=== PATIENT | female | born 1970 | race African-American/Black ===

== ENCOUNTER 2017-10-26 10:28 | Emergency (ER) | payer BC ==
[~2017-10-26] VITALS: Ht 172.7 cm; Wt 77.1 kg
[~2017-10-26 10:28] MED LIST: CLINDAMYCIN HC300 MG PO; IBUPROFEN PO; ULTRAM50 MG PO
[2017-10-26] MEDS ORDERED: KETOROLAC TROMETHAMINE 30 MG/ML VIAL IV STA (11:13)
[2017-10-26] MEDS ORDERED: MORPHINE SULFATE 5 MG/ML VIAL IV ONE (11:15)
[2017-10-26] MEDS ORDERED: HYOSCYAMINE SULFATE 0.5 MG/ML AMP IV ONE (11:15)
[2017-10-26 11:41] LABS: BASOPHILS % 0.8 % (0.0-1.0); EOSINOPHILS # (AUTO) 0.2 (0.0-0.4); EOSINOPHILS % 3.1 % (0.0-6.0); HEMATOCRIT 37.3 % (34.2-44.1); HEMOGLOBIN 12.4 g/dL (12.0-16.0); LYMPHOCYTES # (AUTO) 1.8 (1.0-3.2); LYMPHOCYTES % 34.6 % (18.0-39.1); MEAN CORPUSCULAR HEMOGLOBIN 25.1 pg (28-32); MEAN CORPUSCULAR HGB CONC 33.2 g/dL (31-35); MEAN CORPUSCULAR VOLUME 75.4 fL (81-99); MONOCYTES # (AUTO) 0.5 (0.2-0.8); MONOCYTES % 10.2 % (4.4-11.3); NEUTROPHILS # (AUTO) 2.7 (2.1-6.9); NEUTROPHILS % 51.1 % (38.7-80.0); PLATELET COUNT 568 x10e3/uL (140-360); RED BLOOD COUNT 4.95 x10e6/uL (3.6-5.1); RED CELL DISTRIBUTION WIDTH 14.8 % (11.7-14.4)
[2017-10-26 11:45] LABS: BILIRUBIN,URINE NEGATIVE (NEGATIVE); KETONES,URINE NEGATIVE (NEGATIVE); LEUKOCYTE ESTERASE ,URINE NEGATIVE (NEGATIVE); NITRITE,URINE NEGATIVE (NEGATIVE); PROTEIN,URINE DIPSTICK NEGATIVE (NEGATIVE); URINE UROBILINOGEN 0.2 mg/dL (0.2 - 1)
[2017-10-26 11:49] LABS: COLOR,URINE YELLOW (YELLOW); PREGNANCY TEST, URINE NEGATIVE (NEGATIVE)
[2017-10-26 12:02] LABS: ALANINE AMINOTRANSFERASE 12 IU/L (0-55); ALBUMIN/GLOBULIN RATIO 0.9 (0.8-2.0); ALKALINE PHOSPHATASE 56 IU/L (40-150); ANION GAP 11.6 mmol/L (8-16); BLOOD UREA NITROGEN 8 mg/dL (7-26); BUN/CREATININE RATIO 10 (6-25); CALCIUM 9.3 mg/dL (8.4-10.2); CARBON DIOXIDE 25 mmol/L (22-29); CHLORIDE 103 mmol/L (98-107); CREATININE, SERUM 0.84 mg/dL (0.57-1.11); EST GLOMERULAR FILTRATION RATE > 60 ML/MIN (60-); GLUCOSE 110 mg/dL (74-118); LIPASE 36 U/L (8-78); POTASSIUM 3.6 mmol/L (3.5-5.1); SODIUM 136 mmol/L (136-145)
[2017-10-26 12:46] LABS: CLARITY,URINE CLEAR (CLEAR)
[2017-10-26 12:47] LABS: EPITHELIAL CELLS,URINE RARE /LPF
--- NOTE | 2017-10-26 13:08 | Diagnostic Imaging Report ---
PROCEDURE: CT ABDOMEN AND PELVIS WITHOUT CONTRAST TECHNIQUE: The abdomen and pelvis were scanned utilizing a multidetector helical scanner from the diaphragm to the lesser trochanter without contrast per stone protocol. Coronal and sagittal multiplanar reformations were obtained. Total DLP: 726 mGy-cm COMPARISON: None. INDICATIONS: RIGHT FLANK PAIN FINDINGS: ABSENCE OF INTRAVENOUS CONTRAST DECREASES SENSITIVITY FOR DETECTION OF FOCAL LESIONS AND VASCULAR PATHOLOGY. LOWER THORAX: Normal. HEPATOBILIARY: No focal hepatic lesions. No biliary ductal dilatation. Cholecystectomy clips. SPLEEN: No splenomegaly. PANCREAS: No focal masses or ductal dilatation. ADRENALS: No adrenal nodules. KIDNEYS/URETERS: No hydronephrosis, stones, or solid mass lesions. PELVIC ORGANS/BLADDER: Uterus is retroverted and bulky in appearance especially in the cervical region. PERITONEUM / RETROPERITONEUM: No free air or fluid. LYMPH NODES: No lymphadenopathy. VESSELS: Unremarkable. GI TRACT: No distention or wall thickening. Colonic diverticula without evidence of diverticulitis. Appendix is normal. Submucosal fat infiltration of the terminal ileum, likely quiescent Crohn's. BONES AND SOFT TISSUES: Unremarkable. IMPRESSION: 1. Bulky appearing uterus especially in the cervical region. Recommend pelvic ultrasound. 2. Otherwise, no acute abnormalities identified. No renal stones. Dictated by: Garrison Gardner M.D. on 10/26/2017 at 13:16 Electronically approved by: Garrison Gardner M.D. on 10/26/2017 at 13:16
[2017-10-26 14:53] VITALS: BP 142/84
== END 2017-10-26 15:59 | disposition home or self-care (01) ==
LOC: ER 10:28
DX: R10.11 Right upper quadrant pain (principal); M54.41 Lumbago with sciatica, right side; I10 Essential (primary) hypertension
CPT/HCPCS: 36415; 74176; 80053; 81001; 81025; 83690; 85025; 87086; 99284; J1885; J1980; J2270

== ENCOUNTER → 2017-12-12 | Outpatient (CLI) | payer BC ==
[~2017-12-12] MED LIST changes: +IOPAMIDOL 370 MG/ML 200 ML INFUS..BTL INJ ONE; +SODIUM CHLORIDE 0.9% 50ML 50 ML ONE
[2017-12-12 10:54] LABS: BLOOD UREA NITROGEN 8 mg/dL (7-26); BUN/CREATININE RATIO 10 (6-25); CREATININE, SERUM 0.81 mg/dL (0.57-1.11); EST GLOMERULAR FILTRATION RATE > 60 ML/MIN (60-)
--- NOTE | 2017-12-12 15:58 | Diagnostic Imaging Report ---
EXAMINATION: CT of the neck with contrast HISTORY: Neck mass/lump under the chin screening COMPARISON: Neck CT on 04/23/2017 TECHNIQUE: Multidetector helical axial images were obtained from the sternal notch through the skull base during intravenous infusion of iodinated contrast material. Images were reconstructed using soft tissue and bone algorithms and were viewed in multiplanar format. Intravenous contrast: 100 mL of Isovue 370. FINDINGS: The technologist placed a marker on the skin in the area indicated by the patient midline submandibular region. Mass: No solid or cystic mass, particularly no abnormalities underneath the placed skin marker in the submandibular region. Nodes: No lymphadenopathy. Sinuses: Imaged portions unremarkable. Oral cavity: Unremarkable. Salivary glands: Parotid and submandibular glands unremarkable. Pharynx: Minimal prominence of the nasopharyngeal adenoid tissue, likely reactive, no discrete mass is seen. 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 Unchanged from prior. Larynx: Unremarkable. Thyroid gland: Diffusely enlarged with multiple mostly hypoattenuating nodules throughout both lobes and isthmus, previously seen dominant hypodense nodule in the right lobe of the thyroid gland is no longer visualized. The findings are likely related to multinodular goiter without significant narrowing of the trachea. Upper esophagus: Unremarkable. Blood vessels: Unremarkable. Bones: Unremarkable. IMPRESSION: 1. No mass or cervical lymphadenopathy, particularly no abnormalities underneath the placed skin marker in the submandibular region. 2. Persistent multinodular goiter as detailed above. Signed by: Dr. Kierra Maza M.D. on 12/12/2017 3:55 PM
== END ==
LOC: MAMMO 09:29
PROVIDERS: ATTEND Internal Medicine
DX: Z12.31 Encounter for screening mammogram for malignant neoplasm of breast (principal); R22.1 Localized swelling, mass and lump, neck; E04.2 Nontoxic multinodular goiter
CPT/HCPCS: 36415; 70491; 82565; 84520; Q9967

== ENCOUNTER 2018-04-07 07:18 | Observation (INO) | payer BC ==
[2018-04-04 12:29] LABS: BASOPHILS % 0.6 % (0.0-1.0); EOSINOPHILS # (AUTO) 0.2 (0.0-0.4); EOSINOPHILS % 3.7 % (0.0-6.0); HEMATOCRIT 35.1 % (34.2-44.1); HEMOGLOBIN 11.8 g/dL (12.0-16.0); LYMPHOCYTES # (AUTO) 2.6 (1.0-3.2); LYMPHOCYTES % 41.6 % (18.0-39.1); MEAN CORPUSCULAR HEMOGLOBIN 25.5 pg (28-32); MEAN CORPUSCULAR HGB CONC 33.6 g/dL (31-35); MONOCYTES # (AUTO) 0.5 (0.2-0.8); MONOCYTES % 8.7 % (4.4-11.3); NEUTROPHILS # (AUTO) 2.8 (2.1-6.9); NEUTROPHILS % 45.1 % (38.7-80.0); PLATELET COUNT 516 x10e3/uL (140-360); RED BLOOD COUNT 4.62 x10e6/uL (3.6-5.1); RED CELL DISTRIBUTION WIDTH 15.2 % (11.7-14.4)
[2018-04-04 12:48] LABS: ALANINE AMINOTRANSFERASE 12 IU/L (0-55); ALBUMIN 3.9 g/dL (3.5-5.0); ALBUMIN/GLOBULIN RATIO 1.2 (0.8-2.0); ALKALINE PHOSPHATASE 53 IU/L (40-150); ANION GAP 9.8 mmol/L (8-16); BLOOD UREA NITROGEN 6 mg/dL (7-26); BUN/CREATININE RATIO 7 (6-25); CALCIUM 9.7 mg/dL (8.4-10.2); CARBON DIOXIDE 27 mmol/L (22-29); CHLORIDE 104 mmol/L (98-107); CREATININE, SERUM 0.82 mg/dL (0.57-1.11); EST GLOMERULAR FILTRATION RATE > 60 ML/MIN (60-); GLUCOSE 106 mg/dL (74-118); POTASSIUM 3.8 mmol/L (3.5-5.1); SODIUM 137 mmol/L (136-145)
--- NOTE | 2018-04-04 13:25 | Diagnostic Imaging Report ---
PROCEDURE: Frontal and lateral views of the chest. COMPARISON: None. INDICATIONS: PRE-OP, DENIES CHEST COMPLAINTS FINDINGS: Lines/tubes: None. Lungs: The lungs are well inflated and clear. There is no evidence of pneumonia or pulmonary edema. Pleura: There is no pleural effusion or pneumothorax. Heart and mediastinum: The heart and the mediastinum are normal. Bones: No acute bony abnormality. IMPRESSION: 1. No acute cardiopulmonary disease. Cedric Dudley M.D. Dictated by: Cedric Dudley M.D. on 04/04/2018 at 13:28 Electronically approved by: Cedric Dudley M.D. on 04/04/2018 at 13:28
[~2018-04-07] VITALS: Ht 172.7 cm; Wt 90.7 kg
[~2018-04-07 07:18] MED LIST changes: +ASPIR 8181 MG PO; -IOPAMIDOL 370 MG/ML 200 ML INFUS..BTL INJ ONE; +LISINOPRIL10 MG PO; +METFORMIN HCL500 MG PO; -SODIUM CHLORIDE 0.9% 50ML 50 ML ONE
[2018-04-07] MEDS ORDERED: BUPIVACAINE 0.5%/EPI 30 ML SDV INJ ONE (10:20)
[2018-04-07] MEDS ORDERED: ESTROGENS CONJUGATED VAGINAL CR 45 GM TUBE PV ONE (10:20)
[2018-04-07] MEDS ORDERED: SODIUM CHLORIDE 0.9% INJ 10 ML VIAL ONE (10:23)
[2018-04-07] MEDS ORDERED: CEFAZOLIN SOD 2 GM/D5W 50ML 50 ML IV ONE (10:33)
[2018-04-07] MEDS ORDERED: VASOPRESSIN INJ 20 UNIT/ML VIAL IV SCH (10:45)
[2018-04-07] MEDS ORDERED: SEVOFLURANE INHAL SOLN 250 ML PEN BTL ONE (12:54)
[2018-04-07] MEDS ORDERED: ROCURONIUM BROMIDE 10 MG/ML 5ML VIAL ONE (12:54)
[2018-04-07] MEDS ORDERED: ONDANSETRON HCL INJ 2 MG/ML VIAL ONE (12:54)
[2018-04-07] MEDS ORDERED: DEXAMETHASONE SOD PHOS INJ 4 MG/ML VIAL ONE (12:54)
[2018-04-07] MEDS ORDERED: PROPOFOL IV EMULSION 10 MG/ML 20 ML VIAL ONE (12:54)
[2018-04-07] MEDS ORDERED: FENTANYL CITRATE/PF 100MCG/2 ML INJ ONE (13:08)
[2018-04-07] MEDS ORDERED: MIDAZOLAM HCL 2 MG/2 ML VIAL ONE (13:08)
[2018-04-07] MEDS ORDERED: KETAMINE HCL INJ 50 MG/ML 10 ML VIAL ONE (13:08)
[2018-04-07] MEDS ORDERED: HYDROMORPHONE 1MG/1ML INJ ONE ×2 (14:22→15:58)
[2018-04-07] MEDS ORDERED: DOCUSATE SODIUM 100 MG CAP PO PRN (15:45)
[2018-04-07] MEDS ORDERED: MORPHINE SULFATE 2 MG/ML SYR IM PRN ×2 (15:45→19:45)
[2018-04-07] MEDS ORDERED: SIMETHICONE 80 MG CHEW PO PRN (15:45)
[2018-04-07] MEDS ORDERED: ONDANSETRON HCL INJ 2 MG/ML VIAL IV PRN (15:45)
[2018-04-07] MEDS ORDERED: ACETAMINOPHEN 325 MG TAB PO PRN (15:45)
[2018-04-07] MEDS ORDERED: DIPHENHYDRAMINE HCL 25 MG CAP PO PRN (15:45)
[2018-04-07] MEDS ORDERED: BISACODYL 10 MG SUPP PR PRN (15:45)
[2018-04-07] MEDS: KETOROLAC TROMETHAMINE 30 MG/ML VIAL IV PRN ×2 (16:35→17:50)
[2018-04-07 17:28] VITALS: BP 169/72
[2018-04-07] MEDS: LACTATED RINGER'S 1,000 ML IV SCH (17:37)
[2018-04-07 17:41] VITALS: BP 169/72
[2018-04-07 17:50] VITALS: BP 169/72
[2018-04-07] MEDS: CEFAZOLIN SOD 1 GM VIAL IV SCH (18:10)
[2018-04-07 18:24] LABS: BASOPHILS % 0.1 % (0.0-1.0); EOSINOPHILS % 0.1 % (0.0-6.0); HEMATOCRIT 33.8 % (34.2-44.1); HEMOGLOBIN 11.3 g/dL (12.0-16.0); LYMPHOCYTES # (AUTO) 1.1 (1.0-3.2); LYMPHOCYTES % 7.6 % (18.0-39.1); MEAN CORPUSCULAR HEMOGLOBIN 25.5 pg (28-32); MEAN CORPUSCULAR HGB CONC 33.4 g/dL (31-35); MEAN CORPUSCULAR VOLUME 76.3 fL (81-99); MONOCYTES # (AUTO) 0.2 (0.2-0.8); MONOCYTES % 1.7 % (4.4-11.3); NEUTROPHILS # (AUTO) 12.4 (2.1-6.9); NEUTROPHILS % 90.2 % (38.7-80.0); PLATELET COUNT 483 x10e3/uL (140-360); RED BLOOD COUNT 4.43 x10e6/uL (3.6-5.1); RED CELL DISTRIBUTION WIDTH 15.2 % (11.7-14.4)
[2018-04-07] MEDS ORDERED: MORPHINE SULFATE 2 MG/ML SYR IV STA (19:14)
[2018-04-07 20:07] VITALS: BP 154/79
[2018-04-07 20:18] VITALS: BP 154/79
[2018-04-07] MEDS ORDERED: TRAMADOL HCL 50 MG TAB PO PRN (21:15)
[2018-04-07] MEDS ORDERED: CEFAZOLIN SOD 1 GM/NS 50ML 50 ML IV SCH (22:00)
[2018-04-08] VITALS: BP 122/71
[2018-04-08] MEDS: KETOROLAC TROMETHAMINE 30 MG/ML VIAL IV PRN ×2 (00:41→08:43)
[2018-04-08] MEDS: LACTATED RINGER'S 1,000 ML IV SCH ×3 (01:45→11:16)
[2018-04-08] MEDS: CEFAZOLIN SOD 1 GM VIAL IV SCH ×2 (01:46→09:28)
[2018-04-08 04:00] VITALS: BP 128/64
[2018-04-08 05:49] LABS: BASOPHILS % 0.2 % (0.0-1.0); EOSINOPHILS % 0.2 % (0.0-6.0); HEMATOCRIT 27.3 % (34.2-44.1); HEMOGLOBIN 9.4 g/dL (12.0-16.0); LYMPHOCYTES # (AUTO) 1.8 (1.0-3.2); LYMPHOCYTES % 14.1 % (18.0-39.1); MEAN CORPUSCULAR HEMOGLOBIN 25.8 pg (28-32); MEAN CORPUSCULAR HGB CONC 34.4 g/dL (31-35); MEAN CORPUSCULAR VOLUME 74.8 fL (81-99); MONOCYTES # (AUTO) 0.9 (0.2-0.8); MONOCYTES % 7.5 % (4.4-11.3); NEUTROPHILS # (AUTO) 9.8 (2.1-6.9); NEUTROPHILS % 77.5 % (38.7-80.0); PLATELET COUNT 436 x10e3/uL (140-360); RED BLOOD COUNT 3.65 x10e6/uL (3.6-5.1); RED CELL DISTRIBUTION WIDTH 15.1 % (11.7-14.4)
[2018-04-08 06:05] LABS: ANION GAP 10.4 mmol/L (8-16); BLOOD UREA NITROGEN 8 mg/dL (7-26); BUN/CREATININE RATIO 11 (6-25); CALCIUM 8.3 mg/dL (8.4-10.2); CARBON DIOXIDE 26 mmol/L (22-29); CHLORIDE 105 mmol/L (98-107); CREATININE, SERUM 0.73 mg/dL (0.57-1.11); EST GLOMERULAR FILTRATION RATE > 60 ML/MIN (60-); GLUCOSE 106 mg/dL (74-118); POTASSIUM 4.4 mmol/L (3.5-5.1); SODIUM 137 mmol/L (136-145)
[2018-04-08 07:45] VITALS: BP 114/56
[2018-04-08] MEDS ORDERED: LISINOPRIL 10 MG TAB PO SCH (09:00)
[2018-04-08] MEDS ORDERED: METFORMIN HCL 500 MG TAB PO SCH (09:00)
[2018-04-08 09:29] VITALS: BP 114/56
--- NOTE | 2018-04-08 09:43 | Operative Report ---
DATE OF PROCEDURE: April 07, 2018 PREOPERATIVE DIAGNOSES 1. Menorrhagia. 2. Anemia. 3. Fibroid uterus. 4. Pelvic pain. POSTOPERATIVE DIAGNOSES 1. Menorrhagia. 2. Anemia. 3. Fibroid uterus. 4. Pelvic pain. PROCEDURES: 1. Laparoscopically-assisted vaginal hysterectomy. 2. Bilateral salpingectomy. ANESTHESIA: General with Dr. Dawson. INDICATIONS FOR PROCEDURES: The patient is a 47-year-old 3, para 3, status post tubal ligation with last menstrual period March 22, 2018 with fibroid uterus, a 2.3 cm left fundal myoma and who has menorrhagia and anemia. She has failed medical therapy with non-steroidals and oral contraceptives, and she is here for laparoscopically-assisted vaginal hysterectomy, bilateral salpingectomy. She does not desire bilateral oophorectomy unless medically necessary. She has declined endometrial ablation, and is, therefore, taken here for laparoscopically-assisted vaginal hysterectomy at this time. FINDINGS AT SURGERY: There was an 8-week sized retroverted, retroflexed uterus. The tubes were status post tubal ligation. The ovaries were within normal limits. The tubes were easily divided from the ovaries and the uterus and tubes were removed and sent to pathology. DESCRIPTION OF PROCEDURES: The patient was taken to the operating room and placed on the table in the supine position. General anesthesia was administered. A Mckeon catheter was placed in the bladder for constant drainage. The perineum was prepared and draped in the usual sterile manner as was the abdomen. Pelvic exam revealed an 8-week size nodular, retroverted, retroflexed uterus with no adnexal masses. A weighted speculum was placed in the posterior vaginal wall and then with the aid of a right angle retractor the anterior lip of the cervix was grasped with a single tooth tenaculum. The Serafin cannula was then inserted into the endocervical canal for manipulation. We proceeded with laparoscopy. The laborer operator changed gloves. A small incision was made just inferior to the umbilicus in the midline. The Veress needle was inserted through into the peritoneal cavity. A pneumoperitoneum was created by insufflation of 4 liters of carbon dioxide gas under a filling pressure of 8-10 mm of mercury. The Veress needle was removed and the trocar was inserted through the incision into the peritoneal cavity. The trocar was removed, and laparoscope was placed and with confirmation that the peritoneal cavity had been entered, a second trocar was placed through a midline suprapubic incision under direct visualization by laparoscopy, and 3rd and 4th 5 mm trocars were placed in the right and left lower quadrant for manipulation. FINDINGS AT SURGERY: There was an 8-week sized nodular, retroverted, retroflexed uterus. Tubes were status post tubal ligation. The ovaries were within normal limits. The fibroid could not be seen very distinctively from the uterus as it was not pedunculated. It was subserosal. The uterus could not easily be taken out of the retroflexed position. Therefore, a laparoscopic tenaculum was used to grasp the fundus of the uterus and brought it up so that the uterine attachments were easily identified and the surgery was made much easier. At this point, the left tube was grasped and the LigaSure instrument was placed between the left tube and the left ovary on the LigaSure. The LigaSure was fired and after good hemostasis was noted it was cut. The tube was freed up, and then 2 more bites were taken with the LigaSure down the mesosalpinx completely the ovary from the uterus, coagulating and cutting. At this point, the round ligament on the left was then clamped with the LigaSure instrument. The round ligament was then coagulated and cut, and then the anterior peritoneum was opened up to the point where there were adhesions of bladder to the lower uterine segment. At this point, the uterus was almost completely free on this side. We took one bite on the broad ligament, clamping with the LigaSure, coagulating and then cutting. Good hemostasis in evidence. We then proceeded to the right side where the right tube was grasped and mesosalpinx was grabbed with the LigaSure instrument and the mesosalpinx was coagulated and cut, freeing the tube from the ovary. Two further bites in the mesosalpinx were taken, and then the round ligament on the right side was coagulated and cut, and then the anterior peritoneum was opened from the round ligament to the point where the bladder was adherent to the anterior surface of the uterus. At this point, inspected, and the right side of the uterus was free as well, and the decision was made to proceed with vaginal portion of the procedure. Due to the deep retroflexion of the uterus, there was very little of the uterus still attached to the pelvic side eckert, but the uterine vessels were still attached. So, we placed the patient back in the lithotomy position, and dilute Pitressin was injected around the cervix. The cervix was grasped with two single-tooth tenacula and the Serafin cannula was removed, and then the dilute Pitressin was injected around the cervix and then the cervix was circumscribed with a knife and the endopelvic fascia was advanced anteriorly, posteriorly and laterally. Anteriorly, the bladder was severely adherent to the uterus, and sharp dissection was able to move it out of the way partially, and then at this point the posterior cul-de-sac was visualized. It was grasped and opened under direct visualization using the Metzenbaum scissors and it was opened from uterosacral ligament to uterosacral ligament, and then the vaginal cuff was tied to the posterior peritoneum for hemostasis using running lock stitch of 2-0 chromic suture. Then, the Zeppelin clamps were taken on the uterosacral ligaments, clamping, cutting and tieing off with 0 Vicryl suture and tagging for future identification, and then the cardinal ligament on each side was clamped, cut and tied off with 0 Vicryl suture. We then attempted to advance the peritoneum anteriorly, but were not successful in doing so due to the adherent bladder, and we, therefore, were able to get it far enough to identify the uterine vessels, clamping, cutting and tieing off with 0 Vicryl suture. There was good hemostasis in evidence. However, there was some back bleeding noted after tieing off one side before the other side was tied off. This required placing a clamp over it to prevent the bleeding until the other side was secure. We took another bite up on the broad ligament, clamping, cutting and tieing off with 0 Vicryl suture. At this point, because the bladder was still adherent to the lower uterine segment, the decision was made to remove the uterus posteriorly using Towel clips. The uterus was brought out until only the anterior attachments were noted, and then Zeppelin clamps were placed over the anterior peritoneum as close to the uterus as possible, and then the bladder was successfully dissected away and the tissue was tied off with 0 Vicryl suture. There was good hemostasis in evidence and at this point the uterus was completely detached, and sent to pathology for definitive diagnosis. There was good hemostasis in evidence. The Mckeon catheter was draining clear urine, and we, therefore, proceeded to close. The uterosacral ligaments were tied to the vaginal cuff using a free needle for support. Following this, the vaginal cuff was closed with a running lock stitch of 1-0 chromic suture. There was good hemostasis in evidence, and then we irrigated and suctioned the vagina and found no other evidence of any bleeding, and then the laborer operator changed gown and gloves and we proceeded to look abdominally and after reinserting the pneumoperitoneum we were able to visualize all of the pedicles. There was no evidence of bleeding of any kind. Both ovaries were seen and appeared to be completely normal. We irrigated and suctioned twice. No evidence of any bleeding at this time. Therefore, the decision was made to close. All the air and the instruments were removed from the abdomen. The skin incisions were then closed with inverted stitches of 4-0 Monocryl suture thus completing the procedure. There were no complications noted. Estimated blood loss was 500 mL. The patient tolerated the procedure well, and was transferred from the operating room to the recovery room in stable condition. Again, the Mckeon catheter was draining clear urine. The patient received Ancef 2 grams for prophylaxis and the counts were correct x3. Job#: [id number]
[2018-04-08 11:47] VITALS: BP 108/56
[2018-04-08] MEDS ORDERED: IBUPROFEN 400 MG TAB PO PRN (12:15)
[2018-04-08] MEDS ORDERED: MOTRIN200 MG PO (14:24)
== END 2018-04-08 15:02 | disposition home or self-care (01) ==
LOC: OR 07:18 → PACU V 15:58 → MED/SURG 17:27
PROVIDERS: ADMIT Obstetrics & Gynecology; ATTEND Obstetrics & Gynecology
DX: D25.2 Subserosal leiomyoma of uterus (principal); N92.0 Excessive and frequent menstruation with regular cycle; D64.9 Anemia, unspecified; E11.9 Type 2 diabetes mellitus without complications; I10 Essential (primary) hypertension; N72 Inflammatory disease of cervix uteri; N87.0 Mild cervical dysplasia
CPT/HCPCS: 36415 ×3; 58552; 71046; 80048; 80053; 81025; 82948 ×2; 83036; 84702; 85025 ×3; 86850; 86900; 88307; 93005; G0378 ×2; J0690 ×2; J1100; J1170; J1885 ×2; J2250; J2270; J2405; J7120 ×2

== ENCOUNTER 2018-12-15 21:16 | Emergency (ER) | payer BC ==
[~2018-12-15] VITALS: Ht 172.7 cm; Wt 90.7 kg
[~2018-12-15 21:16] MED LIST changes: +MOTRIN200 MG PO
[2018-12-15] MEDS ORDERED: ACETAMINOPHEN 325 MG TAB PO ONE (21:30)
[2018-12-15] MEDS ORDERED: ACETAMINOPHEN 325 MG TAB ONE (21:33)
[2018-12-15 21:53] LABS: STREPTOCOCCUS GRP A ANTIGEN NEGATIVE (NEGATIVE)
[2018-12-15 22:11] LABS: INFLUENZAE A&B ANTIGEN (RAPID) POSITIVE FLU A (NEGATIVE)
--- NOTE | 2018-12-15 22:41 | Diagnostic Imaging Report ---
EXAMINATION: CHEST 2 VIEWS INDICATION: ^FEVER, COUGH, CONGESTION, BODY ACHES ^[id number] ^[id number] COMPARISON: None FINDINGS: PA and lateral views TUBES and LINES: None. LUNGS: Lungs are well inflated. There is no evidence of pneumonia or pulmonary edema. PLEURA: No pleural effusion or pneumothorax. HEART AND MEDIASTINUM: The cardiomediastinal silhouette is unremarkable. BONES AND SOFT TISSUES: No acute osseous lesion. Soft tissues are unremarkable. UPPER ABDOMEN: No free air under the diaphragm. IMPRESSION: No acute thoracic abnormality. Signed by: Dr. Reymundo Sheets MD on 12/15/2018 10:15 PM
== END 2018-12-15 22:34 | disposition home or self-care (01) ==
LOC: ER 21:16
DX: R50.9 Fever, unspecified (principal); R05 Cough; J11.1 Influenza due to unidentified influenza virus with other respiratory manifestations; I10 Essential (primary) hypertension; E11.9 Type 2 diabetes mellitus without complications; E78.00 Pure hypercholesterolemia, unspecified
CPT/HCPCS: 71046; 83518; 87070; 87400; 99283

== ENCOUNTER → 2019-01-23 | Outpatient (CLI) | payer BC | LOC: MAMMO 08:02 | PROVIDERS: ATTEND Internal Medicine | DX: Z12.31 Encounter for screening mammogram for malignant neoplasm of breast (principal) | CPT/HCPCS: 77067 ==

== ENCOUNTER → 2019-07-27 | Outpatient (CLI) | payer BC ==
[~2019-07-27] MED LIST changes: +IOPAMIDOL 370 MG/ML 200 ML INFUS..BTL INJ ONE; +SODIUM CHLORIDE 0.9% 50ML 50 ML ONE
[2019-07-27 17:25] LABS: BLOOD UREA NITROGEN 7 mg/dL (7-26); BUN/CREATININE RATIO 9 (6-25); CREATININE, SERUM 0.79 mg/dL (0.57-1.11); EST GLOMERULAR FILTRATION RATE > 60 ML/MIN (60-)
--- NOTE | 2019-07-27 18:59 | Diagnostic Imaging Report ---
History: Swelling of the neck, coughing at night Comparison studies: CT neck 12/12/2017 Technique: Axial, coronal and sagittal images from the skull base to the thoracic inlet. Coronal and sagittal images reconstructed from the axial data. Intravenous contrast: 100 cc of Omnipaque 300. Dose modulation, iterative reconstruction, and/or weight based adjustment of the mA/kV was utilized to reduce the radiation dose to as low as reasonably achievable. Findings: Soft tissues: No abnormalities. Masses: None. Lymph nodes: No radiographically significant adenopathy. Vessels: Arteries and veins are patent. Glands (thyroid, parotid and submandibular): Bilateral hypodense thyroid nodules and diffusely enlarged thyroid gland, the largest nodule is located at the left thyroid inferior pole, measuring up to 3.0 cm. Remaining glands are normal in size and symmetric. No masses. Orbits: No abnormalities. Paranasal sinuses: Clear. Temporal bones: No abnormalities. Skull base and facial bones: Intact. Cervical spine: No high-grade canal stenosis or foraminal narrowing IMPRESSION: 1. Multiple thyroid nodules measuring up to 3.0 cm and diffusely enlarged thyroid gland, stable compared to previous ultrasound neck, if indicated ultrasound recommended for further evaluation. No other neck abnormality Signed by: DR Rubén Rodriguez M.D. on 07/27/2019 6:56 PM
== END ==
LOC: CT 16:33
PROVIDERS: ATTEND Internal Medicine
DX: R22.1 Localized swelling, mass and lump, neck (principal); E04.9 Nontoxic goiter, unspecified
CPT/HCPCS: 36415; 70491; 82565; 84520; 84702; Q9967

== ENCOUNTER 2019-11-28 18:22 | Emergency (ER) | payer BC ==
[~2019-11-28] VITALS: Ht 172.7 cm; Wt 90.7 kg
[~2019-11-28 18:22] MED LIST changes: -IOPAMIDOL 370 MG/ML 200 ML INFUS..BTL INJ ONE; -SODIUM CHLORIDE 0.9% 50ML 50 ML ONE
[2019-11-28 18:28] VITALS: BP 176/97
== END 2019-11-28 18:33 | disposition home or self-care (01) ==
LOC: ER 18:22
DX: J02.0 Streptococcal pharyngitis (principal); R05 Cough; I10 Essential (primary) hypertension; E11.9 Type 2 diabetes mellitus without complications
CPT/HCPCS: 99282

== ENCOUNTER → 2020-02-20 | Outpatient (CLI) | payer BC | LOC: MAMMO 09:37 | PROVIDERS: ATTEND Internal Medicine | DX: Z12.31 Encounter for screening mammogram for malignant neoplasm of breast (principal) | CPT/HCPCS: 77067 ==

== ENCOUNTER → 2020-07-18 | Day surgery (SDC) | payer BC, OTHER ==
[~2020-07-18] MED LIST changes: +ASPIRIN81 MG PO; +ATORVASTATIN CA10 MG PO; +FENTANYL CITRATE/PF 100MCG/2 ML INJ ONE; +LIDOCAINE HCL 2% LOCAL INJ 5 ML SDV VIAL INJ ONE; +MIDAZOLAM HCL 2 MG/2 ML VIAL ONE; +PROPOFOL IV EMULSION 10 MG/ML 20 ML VIAL ONE
[2020-07-18 10:25] VITALS: BP 135/84
--- NOTE | 2020-07-18 11:19 | Operative Report ---
DATE OF PROCEDURE: 07/18/2020 SURGEON: Dick Mahoney MD EGD with esophageal dilatation and biopsies and colonoscopy with polypectomy. INDICATIONS FOR EGD: Dysphagia. INDICATIONS FOR COLONOSCOPY: Colorectal cancer screening. MEDICATIONS: The patient was done under MAC. Please see anesthesiologist's note. PROCEDURE IN DETAIL: With the patient in left lateral decubitus position, a flexible fiberoptic Olympus gastroscope was introduced with ease into the esophagus under direct visualization without any difficulty. There was some patchy erythema noted in distal esophagus. The esophagus was dilated to size 52-Romanian Reis. The scope was then advanced with ease into the stomach. Mucosa overlying the antrum and the body revealed some diffuse erythema and low-grade edema. Biopsies were obtained, sent to stain for H pylori. Pylorus was of normal contour and shape was intubated with ease and the scope was advanced all the way to the second portion of the duodenum. The scope was then withdrawn slowly mucosa overlying the proximal second portion and the duodenal bulb appeared to be within normal limits. The scope was then withdrawn back into the stomach and retroflexed and mucosa overlying the fundus and the cardia appeared to be within normal limits. The scope was then straightened out, it was subsequently withdrawn, and the patient tolerated procedure well. IMPRESSION: 1. Distal esophagitis, mild. 2. Esophagus dilated to size 52-Romanian Reis. 3. Gastritis, biopsied. Biopsies sent to stain for H pylori. PLAN: Follow up histology. Initiate Protonix 40 mg one p.o. q.a.m. a.c. The patient was then turned around after adequate lubrication of the anal canal, a flexible fiberoptic Olympus colonoscope was inserted into the rectum with ease and advanced all the way to the cecum. The prep was suboptimal with retained fecal material in the colon. The scope was then withdrawn slowly, whatever was visualized mucosa overlying the cecum appeared to be within normal limits. The mucosa overlying the ascending colon, transverse, descending, and sigmoid, likewise other than for diverticular disease was grossly within normal limits. Minute polyp was noted in the distal rectum that was removed per hot snare polypectomy. The scope was then retroflexed into the distal rectum and the area around the dentate line grossly appeared to be within limits. The scope was then straightened out, it was subsequently withdrawn. The patient tolerated procedure well. IMPRESSION: 1. Suboptimal prep. 2. Diverticulosis. 3. Rectal polyp removed per hot snare polypectomy. PLAN: Followup histology. Initiate high-fiber, low-fat diet. Initiate high-fiber supplement. The patient will need a followup colonoscopy in 1 year due to the suboptimal prep. Dick Mahoney MD [facility] [place] /[id number] cc: Dr. Oconnell
== END | disposition home or self-care (01) ==
LOC: OR 07:57
PROVIDERS: ATTEND Internal Medicine Gastroenterology
DX: K20.9 Esophagitis, unspecified (principal); K62.1 Rectal polyp; K29.50 Unspecified chronic gastritis without bleeding; B96.81 Helicobacter pylori [H. pylori] as the cause of diseases classified elsewhere; Q27.33 Arteriovenous malformation of digestive system vessel; K57.30 Diverticulosis of large intestine without perforation or abscess without bleeding; K21.9 Gastro-esophageal reflux disease without esophagitis; K59.00 Constipation, unspecified; E11.9 Type 2 diabetes mellitus without complications; I10 Essential (primary) hypertension; D64.9 Anemia, unspecified; Z01.810 Encounter for preprocedural cardiovascular examination; Z01.812 Encounter for preprocedural laboratory examination; Z11.59 Encounter for screening for other viral diseases; Z79.82 Long term (current) use of aspirin; Z79.84 Long term (current) use of oral hypoglycemic drugs; Z68.30 Body mass index [BMI] 30.0-30.9, adult
CPT/HCPCS: 36415; 43239; 43450; 45385; 82948; 93005; J2001; J2250; J2704; J3010; U0002; 45378

== ENCOUNTER → 2020-10-30 | Outpatient (CLI) | payer OTHER ==
[~2020-10-30] MED LIST changes: +COVID-19 VACC, MRNA(MODERNA)/PF 100 MCG/0.5 ML VIAL IM ONE; -FENTANYL CITRATE/PF 100MCG/2 ML INJ ONE; -LIDOCAINE HCL 2% LOCAL INJ 5 ML SDV VIAL INJ ONE; -MIDAZOLAM HCL 2 MG/2 ML VIAL ONE; -PROPOFOL IV EMULSION 10 MG/ML 20 ML VIAL ONE
== END ==
LOC: VACCPMC 18:08
DX: Z23 Encounter for immunization (principal); Z20.822 Contact with and (suspected) exposure to COVID-19

== ENCOUNTER → 2020-11-28 | Outpatient (CLI) | payer OTHER | END | DRG 951 | LOC: VACCPMC 09:08 | DX: Z23 Encounter for immunization (principal); Z20.822 Contact with and (suspected) exposure to COVID-19 | CPT/HCPCS: 0012A; 91301 ==

== ENCOUNTER → 2021-02-16 | Outpatient (CLI) | payer OTHER ==
[~2021-02-16] MED LIST changes: -COVID-19 VACC, MRNA(MODERNA)/PF 100 MCG/0.5 ML VIAL IM ONE
== END ==
LOC: MAMMO 13:40
PROVIDERS: ATTEND Obstetrics & Gynecology
DX: Z12.31 Encounter for screening mammogram for malignant neoplasm of breast (principal)
CPT/HCPCS: 77067

== ENCOUNTER → 2021-05-29 | Day surgery (SDC) | payer OTHER ==
[~2021-05-29] MED LIST changes: +AMOXICILLIN500 MG PO; +CLARITHROMYCIN250 MG PO; +LANSOPRAZOLE30 MG PO; +LIDOCAINE HCL 2% LOCAL INJ 5 ML SDV VIAL INJ ONE; +METOCLOPRAMIDE HCL 10 MG/2ML VIAL ONE; +PROPOFOL IV EMULSION 10 MG/ML 20 ML VIAL ONE; +PROTONIX20 MG PO; +SIMETHICONE 40 MG/0.6 ML BTL ONE
[2021-05-29 09:00] VITALS: BP 105/64
== END | disposition home or self-care (01) ==
LOC: ENDO 06:06
PROVIDERS: ATTEND Internal Medicine Gastroenterology
DX: K29.50 Unspecified chronic gastritis without bleeding (principal); B96.81 Helicobacter pylori [H. pylori] as the cause of diseases classified elsewhere; K20.90 Esophagitis, unspecified without bleeding; I10 Essential (primary) hypertension; R13.10 Dysphagia, unspecified; E78.00 Pure hypercholesterolemia, unspecified; E11.9 Type 2 diabetes mellitus without complications; Z80.0 Family history of malignant neoplasm of digestive organs; K29.70 Gastritis, unspecified, without bleeding; Z68.31 Body mass index [BMI] 31.0-31.9, adult; F41.9 Anxiety disorder, unspecified; K31.89 Other diseases of stomach and duodenum; Z79.82 Long term (current) use of aspirin; Z79.84 Long term (current) use of oral hypoglycemic drugs; Z01.810 Encounter for preprocedural cardiovascular examination; Z01.812 Encounter for preprocedural laboratory examination; Z20.822 Contact with and (suspected) exposure to COVID-19
CPT/HCPCS: 36415; 43239; 43450; 82948; 93005; C9113; J2001; J2704; J2765; U0002

== ENCOUNTER → 2021-06-18 | Outpatient (CLI) | payer OTHER ==
[~2021-06-18] MED LIST changes: -LIDOCAINE HCL 2% LOCAL INJ 5 ML SDV VIAL INJ ONE; -METOCLOPRAMIDE HCL 10 MG/2ML VIAL ONE; -PROPOFOL IV EMULSION 10 MG/ML 20 ML VIAL ONE; -SIMETHICONE 40 MG/0.6 ML BTL ONE
== END ==
LOC: US 10:38
PROVIDERS: ATTEND Surgery
DX: E04.9 Nontoxic goiter, unspecified (principal)
CPT/HCPCS: 76536

== ENCOUNTER → 2021-08-25 | Outpatient (CLI) | payer OTHER ==
[~2021-08-25] MED LIST changes: +COVID-19 VACC, MRNA(MODERNA)/PF 100 MCG/0.5 ML VIAL IM ONE
== END ==
LOC: VACCPMC 08:13
DX: Z23 Encounter for immunization (principal); Z20.822 Contact with and (suspected) exposure to COVID-19

== ENCOUNTER → 2022-02-05 | Outpatient (CLI) | payer BC ==
[~2022-02-05] MED LIST changes: -COVID-19 VACC, MRNA(MODERNA)/PF 100 MCG/0.5 ML VIAL IM ONE
== END ==
LOC: MAMMO 11:12
PROVIDERS: ATTEND Internal Medicine
DX: Z12.31 Encounter for screening mammogram for malignant neoplasm of breast (principal)
CPT/HCPCS: 77067

== ENCOUNTER → 2022-02-26 | Day surgery (SDC) | payer BC ==
[~2022-02-26] MED LIST changes: +FARXIGA5 MG; +LEVOTHYROXINE50 MCG PO; +LEXAPRO10 MG PO; +LIDOCAINE HCL 2% LOCAL INJ 5 ML SDV VIAL INJ ONE; +MIDAZOLAM HCL 2 MG/2 ML VIAL ONE; +PROPOFOL IV EMULSION 10 MG/ML 20 ML VIAL ONE
[2022-02-26 12:11] VITALS: BP 123/79
== END | disposition home or self-care (01) ==
LOC: ENDO 08:51
PROVIDERS: ATTEND Internal Medicine Gastroenterology
DX: K20.90 Esophagitis, unspecified without bleeding (principal); K29.70 Gastritis, unspecified, without bleeding; K22.70 Barrett's esophagus without dysplasia; K21.9 Gastro-esophageal reflux disease without esophagitis; K31.89 Other diseases of stomach and duodenum; Z71.3 Dietary counseling and surveillance; E78.5 Hyperlipidemia, unspecified; I10 Essential (primary) hypertension; E11.9 Type 2 diabetes mellitus without complications; Z71.89 Other specified counseling; Z01.810 Encounter for preprocedural cardiovascular examination; Z01.812 Encounter for preprocedural laboratory examination; Z20.822 Contact with and (suspected) exposure to COVID-19; Z79.84 Long term (current) use of oral hypoglycemic drugs; Z79.82 Long term (current) use of aspirin; Z79.899 Other long term (current) drug therapy; Z68.31 Body mass index [BMI] 31.0-31.9, adult; Z80.0 Family history of malignant neoplasm of digestive organs
CPT/HCPCS: 36415; 43239; 43450; 82948; 93005; C9113; J2001; J2250; J2704; U0002

== ENCOUNTER → 2023-01-07 | Day surgery (SDC) | payer BC ==
[~2023-01-07] MED LIST changes: +FENTANYL CITRATE/PF 100MCG/2 ML INJ ONE; +GLYCOPYRROLATE INJ 0.2 MG/ML VIAL ONE; +HYOSCYAMINE SULFATE 0.5 MG/ML INJ ONE; -MIDAZOLAM HCL 2 MG/2 ML VIAL ONE; +OZEMPIC0.25 MG/0. SC; +POVIDONE IODINE 0.05% 0.05 % ML PO ONE
[2023-01-07 10:05] VITALS: BP 115/78
== END | disposition home or self-care (01) ==
LOC: ENDO 07:10
PROVIDERS: ATTEND Internal Medicine Gastroenterology
DX: R13.10 Dysphagia, unspecified (principal); K29.70 Gastritis, unspecified, without bleeding; K21.9 Gastro-esophageal reflux disease without esophagitis; D64.9 Anemia, unspecified; I10 Essential (primary) hypertension; E11.9 Type 2 diabetes mellitus without complications; Z01.810 Encounter for preprocedural cardiovascular examination; Z79.82 Long term (current) use of aspirin; Z79.84 Long term (current) use of oral hypoglycemic drugs; Z79.85 Long-term (current) use of injectable non-insulin antidiabetic drugs; Z79.899 Other long term (current) drug therapy; Z68.30 Body mass index [BMI] 30.0-30.9, adult
CPT/HCPCS: 36415; 43239; 43450; 82948; 93005; C9113; J1980; J2001; J2704; J3010

== ENCOUNTER → 2023-02-07 | Outpatient (CLI) | payer BC ==
[~2023-02-07] MED LIST changes: -FENTANYL CITRATE/PF 100MCG/2 ML INJ ONE; -GLYCOPYRROLATE INJ 0.2 MG/ML VIAL ONE; -HYOSCYAMINE SULFATE 0.5 MG/ML INJ ONE; -LIDOCAINE HCL 2% LOCAL INJ 5 ML SDV VIAL INJ ONE; -POVIDONE IODINE 0.05% 0.05 % ML PO ONE; -PROPOFOL IV EMULSION 10 MG/ML 20 ML VIAL ONE
== END ==
LOC: MAMMO 14:34
PROVIDERS: ATTEND Internal Medicine
DX: Z12.31 Encounter for screening mammogram for malignant neoplasm of breast (principal)
CPT/HCPCS: 77067

== ENCOUNTER → 2023-11-15 | Day surgery (SDC) | payer BC ==
[2023-11-11 12:39] LABS: BASOPHILS % 0.7 % (0.0-1.0); EOSINOPHILS # (AUTO) 0.2 (0.0-0.4); EOSINOPHILS % 2.8 % (0.0-6.0); HEMATOCRIT 35.9 % (34.2-44.1); HEMOGLOBIN 11.8 g/dL (12.0-16.0); LYMPHOCYTES # (AUTO) 2.5 (1.0-3.2); LYMPHOCYTES % 42.9 % (18.0-39.1); MEAN CORPUSCULAR HEMOGLOBIN 27.1 pg (28-32); MEAN CORPUSCULAR HGB CONC 32.9 g/dL (31-35); MEAN CORPUSCULAR VOLUME 82.3 fL (81-99); MONOCYTES # (AUTO) 0.6 (0.2-0.8); MONOCYTES % 10.6 % (4.4-11.3); NEUTROPHILS # (AUTO) 2.5 (2.1-6.9); NEUTROPHILS % 42.8 % (38.7-80.0); PLATELET COUNT 450 x10e3/uL (140-360); RED BLOOD COUNT 4.36 x10e6/uL (3.6-5.1); RED CELL DISTRIBUTION WIDTH 13.4 % (11.7-14.4); WHITE BLOOD COUNT 5.76 x10e3/uL (4.8-10.8)
[2023-11-11 12:50] LABS: INR 1.09; PROTHROMBIN TIME 14.3 seconds (11.9-14.5)
[2023-11-11 12:51] LABS: PARTIAL THROMBOPLASTIN TIME 29.5 seconds (23.8-35.5)
[2023-11-11 12:55] LABS: ANION GAP 11.7 mmol/L (8-16); CALCIUM 9.3 mg/dL (8.4-10.2); CREATININE, SERUM 0.86 mg/dL (0.57-1.11); POTASSIUM 3.7 mmol/L (3.5-5.1)
[~2023-11-15] MED LIST changes: +ASPIRIN 81 MG CHEW TAB ONE; +ASPIRIN EC81 MG PO; +DEXAMETHASONE SOD PHOS INJ 4 MG/ML SDV ONE; +FAMOTIDINE20 MG PO; +FENTANYL CITRATE/PF 100MCG/2 ML INJ ONE; +KETOROLAC TROMETHAMINE 30 MG/ML VIAL ONE; +LACTATED RINGER'S 1,000 ML ONE; +LIDOCAINE HCL 2% LOCAL INJ 5 ML SDV VIAL INJ ONE; +METOCLOPRAMIDE HCL 10 MG/2ML VIAL IV ONE; +METOCLOPRAMIDE HCL 10 MG/2ML VIAL ONE; +MIDAZOLAM HCL 2 MG/2 ML VIAL ONE; +NAPROXEN250 MG PO; +ONDANSETRON HCL INJ 2MG/ML 2ML 2 MG/ML VIAL IV ONE; +ONDANSETRON HCL INJ 2MG/ML 2ML 2 MG/ML VIAL ONE; +OZEMPIC0.25 MG/02 SC; +PROPOFOL IV EMULSION 10 MG/ML 20 ML VIAL ONE; +SEVOFLURANE INHAL SOLN 250 ML PEN BTL ONE
[2023-11-15] MEDS: FENTANYL CITRATE/PF 100MCG/2 ML INJ ONE ×4 (09:19→09:37)
[2023-11-15] MEDS: HYDROMORPHONE 1MG/1ML INJ ONE ×5 (09:51→10:15)
[2023-11-15 10:50] VITALS: BP 135/72; PULSE 68; RESP 18; O2SAT 97
== END | disposition home or self-care (01) ==
LOC: OR 06:00 → MERGE 08:00
PROVIDERS: ATTEND Specialist
DX: S83.241A Other tear of medial meniscus, current injury, right knee, initial encounter (principal); M22.41 Chondromalacia patellae, right knee; E11.9 Type 2 diabetes mellitus without complications; I10 Essential (primary) hypertension; E78.5 Hyperlipidemia, unspecified; K21.9 Gastro-esophageal reflux disease without esophagitis; D57.3 Sickle-cell trait; Z01.810 Encounter for preprocedural cardiovascular examination; Z01.812 Encounter for preprocedural laboratory examination; Z79.82 Long term (current) use of aspirin; Z79.1 Long term (current) use of non-steroidal anti-inflammatories (NSAID); Z79.84 Long term (current) use of oral hypoglycemic drugs; Z79.85 Long-term (current) use of injectable non-insulin antidiabetic drugs; Z79.899 Other long term (current) drug therapy
CPT/HCPCS: 29881; 36415; 80048; 85025; 85610; 85730; 93005 ×2; J0690; J1100; J1170; J1885; J2001; J2250; J2405; J2704; J2765; J3010; J7121

== ENCOUNTER → 2024-02-15 | Outpatient (REF) | payer BC ==
[~2024-02-15] MED LIST changes: -ASPIRIN 81 MG CHEW TAB ONE; -DEXAMETHASONE SOD PHOS INJ 4 MG/ML SDV ONE; -FENTANYL CITRATE/PF 100MCG/2 ML INJ ONE; -KETOROLAC TROMETHAMINE 30 MG/ML VIAL ONE; -LACTATED RINGER'S 1,000 ML ONE; -LIDOCAINE HCL 2% LOCAL INJ 5 ML SDV VIAL INJ ONE; -METOCLOPRAMIDE HCL 10 MG/2ML VIAL IV ONE; -METOCLOPRAMIDE HCL 10 MG/2ML VIAL ONE; -MIDAZOLAM HCL 2 MG/2 ML VIAL ONE; -ONDANSETRON HCL INJ 2MG/ML 2ML 2 MG/ML VIAL IV ONE; -ONDANSETRON HCL INJ 2MG/ML 2ML 2 MG/ML VIAL ONE; -PROPOFOL IV EMULSION 10 MG/ML 20 ML VIAL ONE; -SEVOFLURANE INHAL SOLN 250 ML PEN BTL ONE
== END ==
LOC: MAMMO 12:02
PROVIDERS: ATTEND Internal Medicine
DX: Z12.31 Encounter for screening mammogram for malignant neoplasm of breast (principal)
CPT/HCPCS: 77067

== ENCOUNTER → 2024-07-18 | Outpatient (REF) | payer BC | LOC: MRI 10:54 | PROVIDERS: ATTEND Orthopaedic Surgery | DX: M25.561 Pain in right knee (principal); M67.51 Plica syndrome, right knee ==

== ENCOUNTER 2024-08-09 14:47 | Outpatient (RCR) | payer BC | END 2024-08-23 | LOC: PT 14:47 | PROVIDERS: ATTEND Orthopaedic Surgery | DX: M22.41 Chondromalacia patellae, right knee (principal); M25.561 Pain in right knee; M25.661 Stiffness of right knee, not elsewhere classified; M62.81 Muscle weakness (generalized); R26.9 Unspecified abnormalities of gait and mobility; R26.2 Difficulty in walking, not elsewhere classified ==

== ENCOUNTER → 2024-10-12 | Day surgery (SDC) | payer BC ==
[2024-10-09 10:16] LABS: BASOPHILS % 0.6 % (0.0-1.0); EOSINOPHILS # (AUTO) 0.2 (0.0-0.4); EOSINOPHILS % 3.4 % (0.0-6.0); HEMATOCRIT 37.6 % (34.2-44.1); HEMOGLOBIN 11.8 g/dL (12.0-16.0); LYMPHOCYTES # (AUTO) 2.1 (1.0-3.2); LYMPHOCYTES % 40.5 % (18.0-39.1); MEAN CORPUSCULAR HEMOGLOBIN 25.9 pg (28-32); MEAN CORPUSCULAR HGB CONC 31.4 g/dL (31-35); MEAN CORPUSCULAR VOLUME 82.6 fL (81-99); MONOCYTES # (AUTO) 0.5 (0.2-0.8); MONOCYTES % 8.9 % (4.4-11.3); NEUTROPHILS # (AUTO) 2.5 (2.1-6.9); NEUTROPHILS % 46.4 % (38.7-80.0); PLATELET COUNT 445 x10e3/uL (140-360); RED BLOOD COUNT 4.55 x10e6/uL (3.6-5.1); RED CELL DISTRIBUTION WIDTH 14.1 % (11.7-14.4); WHITE BLOOD COUNT 5.29 x10e3/uL (4.8-10.8)
[2024-10-09 10:44] LABS: ANION GAP 11.1 mmol/L (8-16); CREATININE, SERUM 0.86 mg/dL (0.57-1.11); POTASSIUM 4.1 mmol/L (3.5-5.1)
[~2024-10-12] MED LIST changes: +ACETAMINOPHEN 1000 MG/100 ML 100 ML IV ONE; +DEXAMETHASONE SOD PHOS INJ 4 MG/ML SDV ONE; +FENTANYL CITRATE/PF 100MCG/2 ML INJ ONE; +LIDOCAINE HCL 2% LOCAL INJ 5 ML SDV VIAL INJ ONE; +MELOXICAM7.5 MG PO; +ONDANSETRON HCL INJ 2MG/ML 2ML 2 MG/ML VIAL ONE; +PHENYLEPHRINE HCL 1% 10 MG/ML VIAL ONE; +PROPOFOL IV EMULSION 10 MG/ML 20 ML VIAL ONE; +SEVOFLURANE INHAL SOLN 250 ML PEN BTL ONE; +SODIUM CHLORIDE 0.9% INJ 10 ML VIAL ONE
[2024-10-12] MEDS: LACTATED RINGER'S 1,000 ML ONE (06:13)
[2024-10-12] MEDS: CEFAZOLIN SODIUM 2 GM ONE (06:13)
[2024-10-12 08:22] VITALS: TEMP 97.1
[2024-10-12 10:25] VITALS: BP 147/79; PULSE 76; RESP 15; O2SAT 99
== END | disposition home or self-care (01) ==
LOC: OR 05:44
PROVIDERS: ATTEND Orthopaedic Surgery
DX: M22.41 Chondromalacia patellae, right knee (principal); S83.241A Other tear of medial meniscus, current injury, right knee, initial encounter; S83.281A Other tear of lateral meniscus, current injury, right knee, initial encounter; D75.89 Other specified diseases of blood and blood-forming organs; M65.161 Other infective (teno)synovitis, right knee; M67.51 Plica syndrome, right knee; E11.9 Type 2 diabetes mellitus without complications; I10 Essential (primary) hypertension; E78.5 Hyperlipidemia, unspecified; E03.9 Hypothyroidism, unspecified; K21.9 Gastro-esophageal reflux disease without esophagitis; X58.XXXA Exposure to other specified factors, initial encounter; Z01.810 Encounter for preprocedural cardiovascular examination; Z01.812 Encounter for preprocedural laboratory examination; Z79.1 Long term (current) use of non-steroidal anti-inflammatories (NSAID); Z79.85 Long-term (current) use of injectable non-insulin antidiabetic drugs; Z79.899 Other long term (current) drug therapy
CPT/HCPCS: 27599; 29880; 36415; 80048; 85025; 93005; C1713; J0131; J1100; J2003; J2371; J2405; J2704; J3010; J7121; 76000

== ENCOUNTER 2024-12-14 16:25 | Emergency (ER) | payer BC ==
[~2024-12-14] VITALS: Ht 170.2 cm; Wt 90.0 kg
[~2024-12-14 16:25] MED LIST changes: -ACETAMINOPHEN 1000 MG/100 ML 100 ML IV ONE; -DEXAMETHASONE SOD PHOS INJ 4 MG/ML SDV ONE; -FENTANYL CITRATE/PF 100MCG/2 ML INJ ONE; -LIDOCAINE HCL 2% LOCAL INJ 5 ML SDV VIAL INJ ONE; -ONDANSETRON HCL INJ 2MG/ML 2ML 2 MG/ML VIAL ONE; -PHENYLEPHRINE HCL 1% 10 MG/ML VIAL ONE; -PROPOFOL IV EMULSION 10 MG/ML 20 ML VIAL ONE; -SEVOFLURANE INHAL SOLN 250 ML PEN BTL ONE; -SODIUM CHLORIDE 0.9% INJ 10 ML VIAL ONE
[2024-12-14 16:30] VITALS: PULSE 94; RESP 20; TEMP 98.7
[2024-12-14 18:09] VITALS: BP 165/91; PULSE 85; RESP 18; TEMP 98.6; O2SAT 99
== END 2024-12-14 18:07 | disposition home or self-care (01) ==
LOC: FSED 16:30
DX: M79.604 Pain in right leg (principal); I10 Essential (primary) hypertension; E11.9 Type 2 diabetes mellitus without complications; E03.9 Hypothyroidism, unspecified
CPT/HCPCS: 93971; 99284

== ENCOUNTER → 2025-01-15 | Outpatient (REF) | payer BC | LOC: MAMMO 13:15 | PROVIDERS: ATTEND Internal Medicine | DX: Z12.31 Encounter for screening mammogram for malignant neoplasm of breast (principal) | CPT/HCPCS: 77067 ==